=== PATIENT | male | born 1965 | race Caucasian/White ===

== ENCOUNTER → 2017-12-08 | Outpatient (CLI) | payer BC ==
[2017-12-08 18:03] LABS: ALBUMIN 4.2 gm/dl (3.4-5.0); ALT/SGPT 32 U/L (12-78); AST/SGOT 32 U/L (15-37); BLOOD UREA NITROGEN 11 mg/dl (7-18); CALCIUM 9.1 mg/dl (8.5-10.1); CARBON DIOXIDE 27 mmol/L (21-32); CHOLESTEROL 185 mg/dl (0-200); CREATININE 1.12 mg/dl (0.60-1.40); GLUCOSE 89 mg/dl (70-99); SODIUM 139 mmol/L (136-145)
[2017-12-08 18:09] LABS: BASO % 0.8 %; BASO ABS # 0.06 K/uL (0-0.2); EOS % 7.1 %; EOS ABS # 0.54 K/uL (0-0.5); HEMATOCRIT 45.4 % (42-52); HEMOGLOBIN 15.4 g/dL (14.0-18.0); IG# 0.02 K/uL (0.00-0.02); LYMPH % 31.6 %; MEAN CELL VOLUME 89.2 fL (80-100); MEAN CORPUSCULAR HEMOGLOBIN 30.3 pg (25-34); MEAN CORPUSCULAR HGB CONC 33.9 g/dl (32-36); MEAN PLATELET VOLUME 10.6 fL (7.4-10.4); MONO % 10.9 %; MONO ABS # 0.83 K/uL (0.11-0.59); NEUT % 49.3 %; NEUT ABS # 3.74 K/uL (1.4-6.5); PLATELET COUNT 212 K/uL (130-400); RED CELL DISTRIBUTION WIDTH CV 13.1 % (11.5-14.5); RED CELL DISTRIBUTION WIDTH SD 42.9 fL (36.4-46.3); WHITE BLOOD COUNT 7.59 K/uL (4.8-10.8)
[2017-12-08 18:15] LABS: ALKALINE PHOSPHATASE 63 U/L (45-117); LDL CHOLESTEROL CALCULATED 119 mg/dl; TOTAL PROTEIN 7.4 gm/dl (6.4-8.2)
== END ==
LOC: C.LABPVFM 12:04
PROVIDERS: ATTEND Nurse Practitioner Family
DX: E66.9 Obesity, unspecified (principal); E55.9 Vitamin D deficiency, unspecified; R53.83 Other fatigue

== ENCOUNTER 2023-11-24 07:26 | Observation (INO) ==
--- NOTE | 2023-10-19 12:11 | PAT Medication Instructions ---
Medication Instructions Date of Service October 19, 2023 Home Medications Medication Instructions Recorded lisinopril 20 mg tablet 20 mg PO DAILY #30 tabs 07/26/22 celecoxib 200 mg capsule (Celebrex) 200 mg PO BID #60 caps 09/05/23 aspirin 81 mg tablet,delayed release 81 mg PO QAM cholecalciferol (vitamin D3) 50 mcg (2,000 unit) capsule (Vitamin D3) 2,000 unit PO QAM lisinopril 20 mg tablet 20 mg PO DAILY celecoxib 200 mg capsule (Celebrex) 200 mg PO BID ASK your surgeon for instructions celecoxib 200 mg capsule (Celebrex) 200 mg PO BID ASK your prescriber and surgeon aspirin 81 mg tablet,delayed release 81 mg PO QAM DO NOT take the morning of surgery cholecalciferol (vitamin D3) 50 mcg (2,000 unit) capsule (Vitamin D3) 2,000 unit PO QAM lisinopril 20 mg tablet 20 mg PO DAILY Other Notes If you have any questions please call us at [phone] or [phone] or [phone] or [phone]
--- NOTE | 2023-10-25 12:50 | Anesthesiology Consultation ---
Date of Service October 25, 2023 Assessment & Plan (1) Encounter for pre-operative examination: - Infectious disease screening: Per assessment on 10/25/23: No known infectious disease contacts or current infectious disease symptoms. No noted recent Covid positive test result. - Outpatient joint assessment: Confirmed with Namita at surgeon's office that plan is for inpatient pathway postop (OR made aware). Pt currently scheduled for inpatient pathway. If surgeon requests review for outpatient joint pathway, patient is not recommended candidate for outpatient joint program from anesthesia standpoint based upon available information. - HTN: BP at goal per most recent [facility] PCP visit 05/2023. Patient states he ran out of BP meds early 09/2023 and has been monitoring BP closely at home/getting "good" readings off meds (previously taking lisinopril 20mg daily). BP at PAT visit 10/25/23 at 132/84. Patient recommended at PAT visit to restart BP meds as prescribed by PCP. He states it is difficult for him to pick-up the prescription and unsure if/when he will be able to. He states he will continue to monitor BP readings and contact PCP if home readings elevated. PCP made aware of the above. Chart Review Chart Review: Acceptable Risk for Surgery and Patient seen in Pre Admission Testing Teaching & Discussion Pre-Anesthesia Teaching/Discussion Notes: Instructed NPO after midnight before surgery,except medications with 15 cc of water. Medication instructions provided according to the PAT guidelines. History Surgery Operation Date: 11/24/23 12:15 Proposed Procedures p Right Anterior Total Hip Arthroplasty - Mina Bridges DO Height/Weight Height: 5 ft 11 in Weight: 146.2 kg Allergies Allergy/AdvReac Type Severity Reaction Status Date / Time Sulfa (Sulfonamide Allergy Mild Rash Verified 10/16/23 11:02 Antibiotics) Medications Home Medications Medication Instructions Recorded Confirmed Last Taken aspirin 81 mg tablet,delayed 81 mg PO QAM 09/18/18 10/16/23 09/24/18 release cholecalciferol (vitamin D3) 50 2,000 unit PO QAM 09/18/18 10/16/23 09/24/18 mcg (2,000 unit) capsule (Vitamin D3) lisinopril 20 mg tablet 20 mg PO DAILY #30 tabs 07/26/22 10/16/23 Unknown celecoxib 200 mg capsule (Celebrex) 200 mg PO BID #60 caps 09/05/23 10/16/23 Unknown Past Medical History Medical History Ascending aorta dilation Pt unaware Chest CT 08/2023: "Mild aneurysmal dilatation of the ascending thoracic aorta is unchanged. This measures up to 4.6 cm." Asthma Childhood Hypertension Morbid obesity Osteoarthritis Pulmonary nodules Under surveillance, last CTS 08/2023 Exercise / Class Metabolic Activity II 4-5 Yardwork/Stairs/Walk up hill (one FS: No CP, no SOB) Past Family History Family History Grandfather (Paternal) Family history of diabetes mellitus Mother Breast cancer Other No family history of adverse response to anesthesia Denies family history of Ovarian cancer Prostate cancer Myocardial infarction Colorectal cancer Past Surgical History Surgical History H/O left knee surgery H/O wrist surgery left wrist History of colonoscopy History of tooth extraction all teeth removed Past Anesthesia History No Hx of Anesthesia Complications and No Family Hx of Anesthesia Complications History of PONV No Hx of PONV and No Hx of Motion Sickness Social History Smoking Status: Never smoker tobacco type: smokeless tobacco Do You Dip or Chew Tobacco: Yes (1 can/2 days (advised none DOS)) Hx Alcohol Use: Yes Alcohol type: beer and hard liquor alcohol intake frequency: 0-2 drinks per day (2 drink/day) Hx Substance Use: No substance use type: does not use Review of Systems Patient denies chest pain, shortness of breath, fever, chills, cough, wheezing, palpitations. Physical Exam Vital Signs BP 132/84 P 86 TEMP 98.2 SP02 95%RA RESP 16 Physical Full cervical extension range of motion. Full TMJ range of motion. TMD > 3.5 finger breaths Mallampati Score 3 Dentition: edentulous Lungs: clear throughout to auscultation Cardiac: regular rate and rhythm, no murmurs noted Spine: normal Carotid arteries: negative bruit Extremities: no LE edema Short, thick neck Short olivares Lab Results Anesthesia Preop Results Results Anesthesia Widget: WBC 7.17 K/ul (4.8-10.8) 10/25/23 Hgb 14.8 g/dl (14.0-18.0) 10/25/23 Hct 43.5 % (42.0-52.0) 10/25/23 Plt 206 K/uL (130-400) 10/25/23 Na 138 mmol/L (136-145) 10/25/23 K 4.2 mmol/L (3.5-5.1) 10/25/23 Cl 104 mmol/L (98-107) 10/25/23 CO2 27 mmol/L (21-32) 10/25/23 BUN 21 mg/dl (6-23) 10/25/23 Creat 0.76 mg/dl (0.6-1.4) 10/25/23 Glucose Level 106 mg/dl (70-99(Fasting)) H 10/25/23 PT 11.0 Seconds (9.0-12.0) 10/25/23 PTT 27 Seconds (21-31) 10/25/23 INR 1.0 (0.9-1.1) 10/25/23 Blood Type A Positive 10/25/23 Antibody Screen NEGATIVE 10/25/23 Testing Electrocardiogram Date: 10/25/23 NSR at 77bpm. "Normal ECG" No significant change compared to 02/17/2021 per narrow fabrics weaver comparison. Stress Test Date: 09/06/22 Normal exercise treadmill test without evidence of inducible ischemia Poor exercise tolerance, 7 METS Abnormal heart rate recovery Baseline heart rate was 82 beats per minute and kurt to 139 beats per minute representing 85% of the maximum predicted heart rate Other Testing Chest CT Date: 08/29/23 1. There is no airspace consolidation or pleural effusion. 2. Numerous low suspicion pulmonary and pleural-based nodules measure up to 4 mm. These are unchanged in size and distribution from the 08/10/2022 examination. An additional one year follow-up examination is recommended to document 2 years of stability. 3. No new or enlarging pulmonary lesion is seen. 4. Hepatic steatosis. 5. Mild aneurysmal dilatation of the ascending thoracic aorta is unchanged. This measures up to 4.6 cm.
[~2023-11-24 07:26] MED LIST: BUPIVACAINE 0.5 % 5 MG/1 ML PF 10ML VIAL ONE
[2023-11-24] MEDS ORDERED: PROPOFOL IV EMULSION 10 MG/ML 20 ML VIAL IV ONE ×2 (07:41→10:45)
[2023-11-24] MEDS ORDERED: MIDAZOLAM HCL 1 MG/ML 2ML VIAL ONE (07:41)
[2023-11-24] MEDS ORDERED: fentaNYL citrate PF 100 MCG/2 ML VIAL ONE (07:42)
--- NOTE | 2023-11-24 08:02 | History & Physical Bridge Note ---
Date of Service November 24, 2023 History & Physical Bridge Note I have examined the patient, reviewed the History & Physical and in the interval since the performance of the History & Physical I have noted the following changes of clinical significance: no changes noted
[2023-11-24] MEDS: FAMOTIDINE 20 MG TAB PO SCH (08:05)
[2023-11-24] MEDS: GABAPENTIN 300 MG CAP PO SCH (08:05)
[2023-11-24] MEDS: dexAMETHasone**PF** 10 MG/ML VIAL IV SCH (08:05)
[2023-11-24] MEDS: LR 500ML BOLUS, THEN 15ML/HR IV SCH (08:05)
[2023-11-24] MEDS: ACETAMINOPHEN 500 MG TAB PO SCH ×2 (08:05→13:11)
[2023-11-24] MEDS: LR 60ML/HR IV SCH (08:06)
[2023-11-24] MEDS ORDERED: ePHEDrine sulfate 50 MG/ML AMP IV PRN (08:16)
[2023-11-24] MEDS ORDERED: HYDROmorphone INJ 1 MG/ML SYRINGE IV PRN (08:16)
[2023-11-24] MEDS ORDERED: fentaNYL citrate PF 100 MCG/2 ML VIAL IV PRN (08:16)
[2023-11-24] MEDS ORDERED: ATROPINE SULFATE 0.1 MG/ML 10ML SYR IV PRN (08:16)
[2023-11-24] MEDS ORDERED: PROMETHAZINE HCL 6.25 MG in SODIUM CHLORIDE 0.9% 50 ML IV PRN (08:16)
[2023-11-24] MEDS ORDERED: ONDANSETRON INJ 2 MG/ML 2 ML VIAL IV PRN ×2 (08:16→12:36)
[2023-11-24] MEDS: TRANEXAMIC ACID 1,000 MG **IV Pre-op IV SCH (08:50)
[2023-11-24] MEDS: ceFAZolin 3000MG 3,000 MG/72.5 ML BAG IV SCH (09:01)
[2023-11-24] MEDS ORDERED: DEXAMETHASONE SOD INJ 4 MG/ML VIAL ONE (09:19)
[2023-11-24] MEDS ORDERED: ePHEDrine sulfate 50 MG/ML AMP ONE (09:19)
[2023-11-24] MEDS ORDERED: ONDANSETRON INJ 2 MG/ML 2 ML VIAL ONE (09:19)
[2023-11-24] MEDS ORDERED: PHENYLEPHRINE 100MCG/ML 10ML SYR IV ONE (09:19)
[2023-11-24] MEDS: ROPIV 0.5% 246mg, Ketorolac 30mg, EPINEPHrine 0.5mg in NSS INFIL SCH (10:14)
[2023-11-24] MEDS: ORTHO JOINT ANESTHETIC ONE (10:15)
[2023-11-24] MEDS: TRANEXAMIC ACID 1,000 MG **IV Intra-op IV SCH (10:24)
--- NOTE | 2023-11-24 10:28 | Operative Report ---
PG Post Operative Report Pre & Post Diagnosis Operation Date: 11/24/23 09:00 Pre-Op Diagnosis: Degenerative Joint Disease Right Hip Post-Op Diagnosis: Degenerative Joint Disease Right Hip I identified the patient and participated in the time-out.: Yes Procedure Operation Date: 11/24/23 09:00 Actual Procedures p Right Anterior Total Hip Arthroplasty(Right) - Mina Bridges DO Surgeon Mina Bridges DO [employer] Business [employer] Mina Jamil PA-C Estimated Blood Loss 250 Findings Consistent with Post-Op Diagnosis Specimens Right femoral head Description of Procedure Implants used I used a ZimmerBiomet total hip arthroplasty system with a size 4 high offset Avenir Complete stem, a 50 mm G7 cup with a 25mm screw, an E1 polyethylene liner, a 40 mm ceramic head with a +3.5 neck. Isra arrived at the hospital for the above procedure. He was seen in the preoperative holding area and the operative extremity was identified and signed. He was given a spinal anesthetic, a preoperative antibiotic, and TXA. He was then taken back to the operating room and laid on the table in the supine position. He was given basic sedation. The operative leg was secured to a Puristst leg positioner. The hip was then prepped and draped in sterile fashion. A timeout was done and the patient and the operative extremity was properly identified. An anterior approach was used. Dissection was taken down through the fascia and the tensor muscle belly was retracted laterally and the rectus was retracted medially. The circumflex vessels were identified and ligated. The capsule was then incised and tagged for later repair. The femoral neck was then cut and the femoral head was removed. The acetabulum was exposed. Time was spent doing a complete circumferential labral release. Sequential reaming of the acetabulum up to a size 53 reamer was done. Final reamings were done under fluoroscopy to ensure appropriate version. A Biomet 54 mm G7 cup was then impacted into place. A single 25 mm screw was placed. The E1 polyethylene liner was then snapped into place. Surrounding soft tissues were then injected with 100 cc of an or thopedic pain control cocktail. The proximal femur was then exposed. Sequential broaching up to a size 4 broach was done. Off that broach a size 40 head with a +3.5 neck was trialed. The hip was reduced and fluoroscopic images showed anatomic alignment of the implants in acceptable length. The broach was removed. The final size 4 high offset Avenir Complete stem was then impacted into place. A ceramic 40 mm head with a +3.5 neck was then impacted onto the stem and the hip was reduced. Final fluoroscopic images showed anatomic alignment of the hip. The capsule was then closed with #1 Vicryl suture. A dilute betadyne lavage was then done for 3 minutes. The joint was then irrigated with normal saline solution. The fascia was closed with #1 PDS suture. Skin was closed with 2-0 Vicryl, kezia, and a Silverlon dressing. He was then transferred to a hospital bed and taken to the post anesthesia care unit in stable condition. He tolerated the procedure well. Mina Jamil PA-C, was present for the entire procedure. He was critical for patient positioning, prepping, draping, retraction exposure, wound closure and application of sterile dressing. I attest to the content of the Intraoperative Record and any orders documented therein. Any exceptions are noted below.
--- NOTE | 2023-11-24 10:44 | Fluoroscopy Report ---
FL hip RT 1V CLINICAL HISTORY: RIGHT ANTERIOR THAright hip arthroplasty COMPARISON STUDY: 10/25/2023 FLUOROSCOPY TIME: 18 seconds FLUOROSCOPY IMAGES: 1 EXPOSURE DOSE: 3.3907 mGy FINDINGS: Right hip arthroplasty demonstrates satisfactory alignment. Expected postoperative soft tis ailyn swelling with deep tissue air. No acute fracture or unexpected opaque foreign body. IMPRESSION: Right hip arthroplasty with expected postoperative changes. ACT 112: Negative or not required by law. Electronically signed by: Piter Calvo M.D. 11/24/2023 10:43 AM
--- NOTE | 2023-11-24 12:04 | XRay Report ---
SINGLE VIEW PELVIS; SINGLE VIEW RIGHT HIP CLINICAL HISTORY: Postoperative examination. FINDINGS: An AP portable view of the hips and pelvis with a crosstable lateral portable view of the r ight hip are compared to study dated 10/25/2023. A bipolar right hip arthroplasty is in near-anatomic a lignment. A single cortical lag screw transfixes the acetabular cup. No acute fracture is identified. There are expected postoperative changes overlying the right hip including skin clips, subcutaneous gas, and soft tissue swelling. Mild arthritic change is seen in the left hip. There is degenerative s clerosis of the sacroiliac joints. IMPRESSION: Expected postoperative findings status post right hip arthroplasty. No acute fracture is seen. ACT 112: Negative or not required by law. Electronically signed by: Waylon Adame M.D. 11/24/2023 12:03 PM
[2023-11-24] MEDS ORDERED: bisacodyL 10 MG SUPP PR PRN (12:36)
[2023-11-24] MEDS ORDERED: METOCLOPRAMIDE HCL INJ 5 MG/ML 2 ML VIAL IV PRN (12:36)
[2023-11-24] MEDS ORDERED: HYDROmorphone INJ 0.5 MG/0.5 ML SYR IV PRN (12:36)
[2023-11-24] MEDS ORDERED: MAGNESIUM HYDROXIDE SUSP 30 ML UDC PO PRN (12:36)
[2023-11-24] MEDS ORDERED: oxyCODONE HCL IR 5 MG TAB (IMMEDIATE RELEASE) PO PRN (12:36)
[2023-11-24] MEDS ORDERED: NALOXONE HCL 0.4 MG/1 ML VIAL/CARP IV PRN (12:36)
[2023-11-24] MEDS: SODIUM CHLORIDE 0.9% 1,000 ML IV SCH (13:11)
[2023-11-24] MEDS: KETOROLAC 30 MG/ML VIAL IV SCH (13:12)
--- NOTE | 2023-11-24 14:16 | Anesthesiology Progress Note ---
Date of Service November 24, 2023 Anesthesia Post Procedure Vital Signs Vital Signs: Temp Pulse Pulse Resp BP Pulse Ox O2 Del Method 11/24/23 13:55 36.9 C 83 18 123/68 94 Room Air 11/24/23 12:55 36.6 C 81 18 127/78 95 Room Air 11/24/23 12:25 36.7 C 73 18 117/75 93 Room Air 11/24/23 11:55 36.8 C 76 16 114/76 95 Nasal Cannula 11/24/23 11:30 70 12 107/60 95 Nasal Cannula 11/24/23 11:20 37 C 77 13 109/58 L 93 Room Air 11/24/23 11:10 84 20 98/67 L 95 Room Air 11/24/23 11:00 73 16 109/61 98 Oxymask 11/24/23 10:53 36.7 C 77 16 105/67 98 Oxymask 11/24/23 08:03 36.7 C 76 20 121/77 96 Room Air O2 Flow Rate 11/24/23 13:55 11/24/23 12:55 11/24/23 12:25 11/24/23 11:55 2 11/24/23 11:30 2 11/24/23 11:20 11/24/23 11:10 11/24/23 11:00 5 11/24/23 10:53 5 11/24/23 08:03 Pain Intensity Right Hip: Pain Intensity: 5 Transfer of Care Handoff Completed per policy Notes Mental Status: alert / awake / arousable and participated in evaluation Patient Amnestic to Procedure: Yes Nausea / Vomiting: adequately controlled Pain: adequately controlled Airway Patency, RR, SpO2: stable & adequate BP & HR: stable & adequate Hydration State: stable & adequate Neuraxial Anesthesia: was administered and sensory block is resolving Anesthetic Complications: no major complications apparent and Pt Satisfied with anesthetic care
[2023-11-24] MEDS: ceFAZolin 2000MG 2,000 MG/15 ML SYR IV SCH (17:14)
[2023-11-24] MEDS: ASPIRIN 81 MG ECTAB PO SCH (20:24)
[2023-11-24] MEDS: SENNA 8.6 MG TAB PO SCH (20:24)
[2023-11-24] MEDS: DOCUSATE SODIUM 100 MG CAP PO SCH (20:24)
--- NOTE | 2023-11-25 07:26 | Orthopedic Progress Note ---
Date of Service November 25, 2023 Assessment & Plan (1) Status post right hip replacement: Overall he is doing fairly well. He is not having much pain in the right hip. He will be seen by physical therapy today for ambulation and range of motion exercises. He is on aspirin for DVT prophylaxis. The nursing staff can change his dressing to another Silverlon. He can be discharged home later today. He will follow-up with orthopedics in 2 weeks. Satish Dhaliwal was seen and examined at bedside this morning. Overall he is doing very well. He is not having much pain in the right hip. He has been up and ambulating to the bathroom. He has no complaints.. Review of Systems All systems reviewed & are unremarkable except as noted in HPI & below. Physical Exam On physical examination of the right hip, the dressing is saturated. It has been reinforced. His leg is out full extension. He has active dorsiflexion plantarflexion of his right ankle.. Results & Data Results & Data Laboratory Results . Diagnostic Findings Postoperative x-rays of the right hip show the prosthesis to be in anatomic alignment without any evidence of fracture complication, or loosening.. PG Care Time/CCT Total # of Minutes Spent Total Time Spent with Patient: Total time spent is greater than 50% in coordination of care (as documented) at patient's floor/unit and/or counseling patient: Coding Level of Care Code 12887 Post Operative Follow-Up Diagnoses Status post right hip replacement Z96.641
--- NOTE | 2023-11-25 07:27 | Discharge Summary ---
Date of Service November 25, 2023 Principal Diagnosis Same as "Discharge Diagnosis" noted below under Discharge Instructions. Discharge Exam On physical examination of the right hip, the dressing is saturated. It has been reinforced. His leg is out full extension. He has active dorsiflexion plantarflexion of his right ankle.. Discharge Data Procedures Performed Operation Date: 11/24/23 09:00 Actual Procedures p Right Anterior Total Hip Arthroplasty(Right) - Mina Bridges DO Ordered Studies 11/24/23 [place] hip RT 1V Routine Hospital Course (1) Status post right hip replacement: On November 24, [address] [facility], [place] and underwent a right hip replacement without complication. He had a spinal anesthetic. Postoperatively he was started on aspirin for DVT prophylaxis and transferred to the general orthopedic floors. His hospital course was uneventful. On postop day #1, his vital signs were stable and his pain was well-controlled. He was able to participate well with physical therapy doing ambulation and range of motion exercises. He was then discharged home. He will follow-up with orthopedics in 2 weeks. PG Care Time/CCT Total # of Minutes Spent Total Time Spent with Patient: Total time spent is greater than 50% in coordination of care (as documented) at patient's floor/unit and/or counseling patient: Discharge Plan Discharge Items Patient Disposition: Home - Self-Care Reason For Visit: Degenerative Joint Disease Right Hip Discharge Diagnosis: Right hip replacement Activity: Per Instructions section Non-emergency contact: Surgeon Call non-emergency contact if: your wound has increased redness and your wound has increased drainage Follow-up/Referrals: Jennifer Sepulveda CRNP [Primary Care Provider] - Diet: Regular Addtl Attending Provider Instructions: Activity and Therapy Recommendations: * If you are using [facility] then therapy will be provided at your home until they feel you have accomplished all of your goals. * If you are using [facility] then Physical Therapy will be provided until they feel you are ready to start Outpatient Physical Therapy. * If you are not using home therapy then Outpatient Physical Therapy should start about 3-5 days from your day of surgery. Therapy will last about 6-10 weeks * You were shown a series of exercises in the hospital. Do these exercises three times each day including the exercises you were shown in physical therapy. * Get up and walk several times each day.~ For the first four weeks, try not to stand or walk for more than one hour at a time. If you do stand or walk for more than one hour, you will not hurt anything, but your leg will likely swell.~~ * As you feel comfortable, you may change from the walker or crutches to a cane and~then to independent walking. Medications: * Narcotic You will likely be sent home from the hospital with a prescription for the narcotic pain medication that worked best throughout your stay. * Cefadroxil -take the antibiotic twice a day for 10 days to help prevent infection. * Aspirin Most patients will be required to take Aspirin 81mg twice a day for 6 weeks after surgery. This is obtained [id number] and a prescription is not necessary. * Other medications may be prescribed for specific circumstances. If you have any questions, please call the office at . * Resume previous home medications unless otherwise instructed TEDs/Elastic Stockings: The white elastic stockings help limit swelling and prevent blood clots from forming in your legs. The more you wear them, the more they work. Wear them for six weeks. Dressing Care: Leave the Silverlon dressing in place for 7 days. After 7 days you may remove the dressing. If the incision is not draining then you may leave the kezia open to air. If there is a little bit of drainage or if the kezia are getting stuck on your clothing then cover the incision with a dry dressing. The kezia will be removed at your 2 week follow-up appointment. Showering: You may shower with the Silverlon dressing in place. Do not let the shower spray hit the dressing directly. Pat the Silverlon dressing dry. If the dressing becomes wet underneath, then simply remove the dressing. Keep the incision dry until you are 7 days out from the day of surgery. After 7 days you may remove the Silverlon dressing and shower with the kezia exposed. Let soapy water run over the kezia and pat them dry. Do not scrub or soak the incision. Things To Watch For: * Drainage from the incision site that occurs more than one week after your surgery. * Increased redness at the incision site. * Fever above 102 degrees Fahrenheit. * Unusual chest pain or shortness of breath. * Call [facility] at with any of the above problems Follow-Up Visit: Follow-up with Dr. Bridges's PA (Mina Jamil) 2-3 weeks after your day of surgery. He will remove your kezia and answer any questions. If you have any additional questions or concerns, Dr Bridges is usually in the office at the same time and will be available An appointment was probably scheduled when you signed-up for surgery in the office. If you have any questions call Office Instructions: More detailed instructions as well as Frequently Asked Questions were provided in a folder by our office when you signed-up for surgery. Please review these instructions when you get home. If you have any further questions or concerns, please feel free to call the office at [phone] Pending Studies at Discharge: No Stand-Alone Forms: [facility] [employer], Smoking Cessation Medications and DC Order Prescriptions: New oxycodone 5 mg Tablet 5 mg PO Q4H PRN (Reason: pain) Qty: 30 0RF cefadroxil 500 mg capsule 500 mg PO BID 10 Days Qty: 20 0RF Continued lisinopril 20 mg tablet 20 mg PO DAILY Qty: 90 3RF Rx Instructions: pls deliver celecoxib [Celebrex] 200 mg capsule 200 mg PO BID Qty: 60 2RF cholecalciferol (vitamin D3) [Vitamin D3] 2,000 unit Capsule 2,000 unit PO QAM Changed aspirin 81 mg Tablet,Delayed Release (Dr/Ec) 81 mg PO BID 42 Days Qty: 0 0RF Discharge Orders: Discharge Order (Routine); Ordered 11/25/23 Ordered By: Mina Bridges Admission Data Admit Date/Time: 11/24/23 10:57 Attending Provider: Mina Bridges Admit Provider: Mina Bridges Primary Care Provider: Jennifer Sepulveda
[2023-11-25] MEDS: dexAMETHasone 4 MG TAB PO SCH (08:58)
[2023-11-25] MEDS: MULTIVITAMIN TAB PO SCH (08:58)
[2023-11-25] MEDS: lisinopril 20 MG TAB PO SCH (09:31)
== END 2023-11-25 10:54 | disposition home or self-care (01) ==
LOC: 3E 07:26 → ASU 07:26